=== PATIENT | male | born 1970 | race Caucasian/White ===

== ENCOUNTER 2025-03-11 18:38 | Emergency (ER) | payer BC, SELFPAY ==
[2025-03-11] VITALS (7 sets, daily range): BP systolic 125–154; BP diastolic 90–111
[2025-03-11 19:10] LABS: Hematocrit 45.2 % (39.0-52.0); Hemoglobin 15.3 g/dL (13.0-18.0); Mean Corp Hgb Conc. 33.8 g/dL (33.0-37.0); Mean Corpuscular Volume 92.4 fL (80.0-94.0); Nucleated Red Blood Cells % 0 % (-); Platelet Count 287 10^3/uL (130-400); Red Cell Dist. Width 11.8 % (11.5-14.5)
[2025-03-11 19:36] LABS: ALT (SGPT) 23 U/L (0-50); AST (SGOT) 17 U/L (17-59); Albumin 4.5 g/dl (3.5-5.0); Alkaline Phosphatase 42 U/L (38-126); Blood Urea Nitrogen 16 mg/dl (9-20); Calcium 9.7 mg/dl (8.4-10.2); Carbon Dioxide 31 mmol/L (22-30); Chloride 95 mmol/L (98-107); Glucose 129 mg/dl (70-99); Potassium 4.2 mmol/L (3.5-5.1); Sodium 135 mmol/L (135-145); Total Protein 7.7 g/dl (6.3-8.2); eGFR > 60.00
[2025-03-11 19:46] LABS: Troponin I < 0.012 ng/ml
--- NOTE | 2025-03-11 20:35 | ED.GENMED ---
History of Present Illness
<Christina Norton PA-C - Last Filed: 03/11/25 23:33>
General
Chief Complaint: Chest Problem
Source: patient
Exam Limitations: none
Time Seen by Provider: 03/11/25 20:22
History of Present Illness
History of Present Illness:
54yoM with a history of hypertension presenting for evaluation of left shoulder pain x 2 to 3 days. Patient was lifting a heavy cooler about a week ago and is unsure if he pulled a muscle. He started to notice pain in his left shoulder and left
rib region a few days ago. Pain is intermittent and is worse if he lays on his left side. The pain did not get better and he became worried about his heart so decided to come to the ED. He also feels slightly short of breath. He denies any leg
swelling, calf pain, nausea, vomiting, fevers.
Phy Exam
<Christina Norton PA-C - Last Filed: 03/11/25 23:33>
General Physical Exam
General Presentation: well appearing and no apparent distress
General Skin: warm and dry
General Habitus: normal
General Mental: alert
ENT Exam
ENT Exam: normocephalic
Cardiovascular Exam
Cardiovascular Exam: no edema, no murmur and tachycardia
Pulmonary Exam
Pulmonary Exam: lungs clear, no respiratory distress, no rales, no crackles, no rhonchi, no wheezing and other (+Tenderness to L lateral ribcage)
Neurological Exam
Neurological Exam: alert
[place] Coma Scale
Eye Opening: Spontaneous
Verbal Response: Oriented
Motor Response: Obeys Commands
GCS Total Score: 15
Skin Exam
Skin Exam: normal color and warm/dry
Psychiatric Exam
Psychiatric Exam: normal mood/affect
<Rafael Duckworth PA-C - Last Filed: 03/11/25 23:25>
[place] Coma Scale
GCS Total Score: 15
Course
<Christina Norton PA-C - Last Filed: 03/11/25 23:33>
Orders/Labs/Results
Orders:
Orders
03/11/25 18:40
Electrocardiogram (*1) Urgent
Reason for Study: Shortness of Breath
EKG- Treatment ONCE
03/11/25 18:59
Complete Blood Count/With Diff Urgent
Comprehensive Metabolic Panel Urgent
Troponin I Urgent
03/11/25 20:33
Cardiac Monitoring- Treatment ONCE
Ketorolac [Toradol] 15 mg IV NOW STA
CR Chest - 2 Views Urgent
Comment:
Reason For Exam: CP
03/11/25 20:52
D-Dimer Urgent
03/11/25 21:24
CT Chest PE Study Urgent
Comment:
Reason For Exam: Shortness of breath
03/11/25 23:23
Doxycycline [Vibramycin] 100 mg PO NOW STA
Abnormal Lab Results
03/11/25
18:59
WBC 11.8 H 10^3/uL
(4.8-10.8)
MCH 31.3 H pg
(27.0-31.0)
Abs Immat Gran (auto) 0.1 H 10^3/uL
(0-0.05)
Absolute Neuts (auto) 9.3 H 10^3/uL
(1.4-6.5)
Absolute Monos (auto) 0.8 H 10^3/uL
(0.1-0.6)
Neutrophils % 78.4 H %
(42.2-75.2)
Lymphocytes % 12.9 L %
(20.5-51.1)
Chloride 95 L mmol/L
(98-107)
Carbon Dioxide 31 H mmol/L
(22-30)
Glucose 129 H mg/dl
(70-99)
03/11/25 18:59
03/11/25 18:59
Vital Signs
Initial and Last Documented VS:
Initial Vital Signs
Pulse Resp BP Pulse Ox
100 16 154/111 95
03/11/25 18:46 03/11/25 18:46 03/11/25 18:46 03/11/25 18:46
Last Documented Vital Signs
Pulse Resp BP Pulse Ox
87 22 142/97 96
03/11/25 22:45 03/11/25 22:45 03/11/25 22:24 03/11/25 22:45
<Rafael Duckworth PA-C - Last Filed: 03/11/25 23:25>
Orders/Labs/Results
Orders:
Orders
03/11/25 18:40
Electrocardiogram (*1) Urgent
Reason for Study: Shortness of Breath
EKG- Treatment ONCE
03/11/25 18:59
Complete Blood Count/With Diff Urgent
Comprehensive Metabolic Panel Urgent
Troponin I Urgent
03/11/25 20:33
Cardiac Monitoring- Treatment ONCE
Ketorolac [Toradol] 15 mg IV NOW STA
CR Chest - 2 Views Urgent
Comment:
Reason For Exam: CP
03/11/25 20:52
D-Dimer Urgent
03/11/25 21:24
CT Chest PE Study Urgent
Comment:
Reason For Exam: Shortness of breath
03/11/25 23:23
Doxycycline [Vibramycin] 100 mg PO NOW STA
Abnormal Lab Results
03/11/25
18:59
WBC 11.8 H 10^3/uL
(4.8-10.8)
MCH 31.3 H pg
(27.0-31.0)
Abs Immat Gran (auto) 0.1 H 10^3/uL
(0-0.05)
Absolute Neuts (auto) 9.3 H 10^3/uL
(1.4-6.5)
Absolute Monos (auto) 0.8 H 10^3/uL
(0.1-0.6)
Neutrophils % 78.4 H %
(42.2-75.2)
Lymphocytes % 12.9 L %
(20.5-51.1)
Chloride 95 L mmol/L
(98-107)
Carbon Dioxide 31 H mmol/L
(22-30)
Glucose 129 H mg/dl
(70-99)
03/11/25 18:59
03/11/25 18:59
Vital Signs
Initial and Last Documented VS:
Initial Vital Signs
Pulse Resp BP Pulse Ox
100 16 154/111 95
03/11/25 18:46 03/11/25 18:46 03/11/25 18:46 03/11/25 18:46
Last Documented Vital Signs
Pulse Resp BP Pulse Ox
87 22 142/97 96
03/11/25 22:45 03/11/25 22:45 03/11/25 22:24 03/11/25 22:45
Rozinalt;Christina Norton PA-C - Last Filed: 03/11/25 23:33>
MDM/Problems Addressed
Differential Diagnosis Includes:
54yoM here with L shoulder/rib pain x several days. Associated with mild dyspnea. He is well appearing in no distress. There is reproducible rib tenderness on exam. Differential diagnosis includes but is not limited to: musculoskeletal, pneumonia,
pleurisy, PE, ACS
Initial ED plan: Workup initiated in triage. EKG shows NSR without ischemic changes and troponin WNL. Will check D-dimer and CXR.
Final assessment: D-dimer normal. CXR shows a small L pleural effusion. HR ranging from 100-105 while at rest and oxygen saturation 94-95%. Decision made to proceed with CTA chest to exclude PE. Case signed out to Nicolas Duckworth PA-C pending CT
results.
<Christina Norton PA-C - Last Filed: 03/11/25 23:33>
*Pulse Oximetry
SaO2: 95
Oxygen Mode of Delivery: Room air
*EKG
Interpreted by ED Provider?: Yes
EKG Intrepretation Date: 03/11/25
Heart Rate: 95
Rate: normal
Rhythm: sinus
[place]: normal axis
QRS Pattern: right bundle branch block (incomplete)
Ischemia: no ischemia
<Rafael Duckworth PA-C - Last Filed: 03/11/25 23:25>
*Pulse Oximetry
Patient hypoxic: no
*Critical Care Note
Total Time (30-74mins, 75-104mins- exclusive of procedures): Not Applicable
<Rafael Duckworth PA-C - Last Filed: 03/11/25 23:25>
Update Note
Update Note:
Assumed care of patient upon signout pending CT of chest. CT of chest reviewed and patient reexamined. CT demonstrates consolidation of the left lower lobe concerning for mild acute pneumonia with parapneumonic effusion. Patient not hypoxic no
respiratory distress vital signs are stable otherwise we will treat with doxycycline
ED Attending Note
<Christina Norton PA-C - Last Filed: 03/11/25 23:33>
-
Portions of this chart may have been created with voice recognition software.� Occasional wrong word or��sound alike� substitutions may have occurred due to the inherent limitations of voice recognition software.
Discharge Plan
Departure
Patient Disposition: Home (Routine Discharge)
Date of Disposition: 03/11/25
Time of Disposition: 23:23
Patient with high blood pressure during this ER visit?: No
Discharge Problem:
Pneumonia
Instructions: Pneumonia
Prescriptions:
New
doxycycline hyclate 100 mg capsule
100 mg PO BID Qty: 14 0RF
Referrals:
Saurabh Espitia DO [Family Provider, Internal Medicine]
Activity Restrictions/Additional Instructions:
Take antibiotics as directed. Continue with ibuprofen or Tylenol for pain. Return if worse otherwise follow-up with your doctor
Interventions
Interventions:
*Risk Screen - Suicide Last Done: 03/11/25 20:54
*General Assessment Last Done: 03/11/25 20:54
*Neglect/Abuse Screening Last Done: 03/11/25 20:54
*ED- Fall Risk Assessment Last Done: 03/11/25 20:54
*ED COVID-19 Vaccine History Last Done: 03/11/25 20:54
ED- Cardiac Assessment Last Done: 03/11/25 20:54
ED- Pulmonary Assessment Last Done: 03/11/25 20:54
Discharge Date and Time
Print Language: YAKUT
[2025-03-11 21:12] LABS: D-Dimer 0.42 ug/mlFEU (0.00-0.50)
[2025-03-11] MEDS: TORADOL 15 MG IV (21:48)
[2025-03-11] MEDS: VIBRAMYCIN 100 MG PO (23:42)
== END 2025-03-11 23:48 | disposition home or self-care (01) ==
LOC: EMR 18:38
PROVIDERS: Emergency Medicine; Physician Assistant; EMERGENCY PHYSICIAN Emergency Medicine; FAMILY PHYSICIAN Internal Medicine
DX: J18.9 Pneumonia, unspecified organism (principal); I10 Essential (primary) hypertension
CPT/HCPCS: 99285; 96374; 71046; 71275; 80053; 84484; 85025; 85379; 93005; Q9967